=== PATIENT | female | born 1995 | race Asian ===

== ENCOUNTER → 2018-01-17 | Outpatient (CLI) | payer MEDICAID | LOC: BMCIMAGING 10:19 | PROVIDERS: ATTEND Urology | DX: Z03.89 Encounter for observation for other suspected diseases and conditions ruled out (principal) ==

== ENCOUNTER → 2018-04-11 | Outpatient (CLI) | payer MEDICAID | LOC: CIMAGING 09:43 | PROVIDERS: ATTEND Urology | DX: N13.2 Hydronephrosis with renal and ureteral calculous obstruction (principal); N13.4 Hydroureter | CPT/HCPCS: 74176-PO ==

== ENCOUNTER 2018-04-14 13:25 | Day surgery (SDC) | payer MEDICAID ==
[2018-04-14] MEDS ORDERED: ceFAZolin 3 GM in D5W 100 ML IV ONE (14:18)
[2018-04-14] MEDS ORDERED: OPIUM/BELLADONNA ALKALO SUPP PR PRN (14:18)
[2018-04-14] MEDS ORDERED: LR 1,000 ML IV ONE (14:18)
[2018-04-14] MEDS ORDERED: ceFAZolin 2 GM/DEXTROSE 100 ML IV ONE (14:30)
[2018-04-14] MEDS ORDERED: CEFAZOLIN 2 GM/DEXTROSE/100 ML BAG IV ONE (14:39)
[2018-04-14] MEDS ORDERED: OPIUM/BELLADONNA ALKALO SUPP PR ONE (16:09)
[2018-04-14] MEDS ORDERED: LIDOCAINE 2% JELLY 20 ML (UROJECT) ONE (16:09)
[2018-04-14] MEDS ORDERED: IOPAMIDOL (ISOVUE-M 300) 15 ML VIAL ONE (16:10)
--- NOTE | 2018-04-14 16:21 | PDANEPAE ---
ANE Past Medical History - Cardiovascular History Hx Hypertension: No Hx Arrhythmias: No Hx Chest Pain: No Hx Coronary Artery / Peripheral Vascular Disease: No Hx CHF / Valvular Disease: No Hx Palpitations: No - Pulmonary History Hx COPD: No Hx Asthma/Reactive Airway Disease: No Hx Recent Upper Respiratory Infection: No Hx Oxygen in Use at Home: No Hx Sleep Apnea: No Sleep Apnea Screening Result - Last Documented: Negative - Neurologic History Hx Cerebrovascular Accident: No Hx Seizures: No Hx Dementia: No - Endocrine History Hx Diabetes: No Endocrine History Comment: was treated for hypothyroid but PCP has taken her off of medication - Renal History Hx Renal Disorders: Yes Renal History Comment: kidney stones - Liver History Hx Hepatic Disorders: No - Neurological & Psychiatric Hx Hx Neurological and Psychiatric Disorders: Yes Neurological / Psychiatric History Comment: depression, no longer on medication - Cancer History Hx Cancer: No - Congenital Disorder History Hx Congenital Disorders: No - GI History Hx Gastrointestinal Disorders: No - Other Health History Other Health History: wears glasses - Chronic Pain History Chronic Pain: No - Surgical History Prior Surgeries: appendectomy ANE Review of Systems Review of Systems: - Exercise capacity METS (RN): 4 METS ANE Patient History - Allergies Allergies/Adverse Reactions: No Known Allergies Allergy (Verified 04/13/18 18:14) - Home Medications Home Medications: NK [No Known Home Meds] 04/13/18 [Last Taken Unknown] - NPO status NPO Since - Liquids (Date): 04/14/18 NPO Since - Liquids (Time): 11:00 NPO Since - Solids (Date): 04/13/18 NPO Since - Solids (Time): 19:00 - Smoking Hx Smoking Status: Never smoked - Family Anes Hx Family Hx Anesthesia Complications: none ANE Labs/Vital Signs - Vital Signs Blood Pressure: 110/68 Heart Rate: 69 Respiratory Rate: 16 O2 Sat (%): 98 Height: 165.1 cm Weight: 111.13 kg ANE Physical Exam - Airway Mallampati Score: Class 2 - ASA Status ASA Status: I ANE Anesthesia Plan Anesthesia Plan: GA w LMA
[2018-04-14] MEDS ORDERED: MIDAZOLAM 2 MG/2 ML VIAL ONE (17:20)
[2018-04-14] MEDS ORDERED: PROPOFOL 200 MG/20 ML VIAL ONE (17:22)
[2018-04-14] MEDS ORDERED: fentaNYL 100 MCG/2 ML INJ ONE ×2 (17:22→18:06)
[2018-04-14] MEDS ORDERED: ONDANSETRON 4 MG/2 ML VIAL ONE (17:25)
[2018-04-14] MEDS ORDERED: METOCLOPRAMIDE 10 MG/2 ML VIAL ONE (17:25)
--- NOTE | 2018-04-14 17:44 | PDHPUP ---
History & Physical Update H&P update statement: This history and physical update is based on an assessment of the patient which was completed after admission or registration (within 24 hours), but prior to the surgery/procedure. H&P update: H&P reviewed & patient examined, no change in patient's condition since H&P completed
[2018-04-14] MEDS ORDERED: KETOROLAC 30 MG/1 ML SDV ONE (18:59)
--- NOTE | 2018-04-14 19:05 | POSTOPPROG ---
Post Op Note Date of Operation: 04/14/18 Surgeon: Leeanna Bautista Anesthesiologist: Wilber Anesthesia: GET(General Endotracheal) Pre-op Diagnosis: left ureteral stone Post-op Diagnosis: same, left ureteral stricture Indication: left ureteral stone Procedure: cysto,LURS,balloon dilation ureter,laser lithotripsy,stent,RGP, fluoro Findings: very narrow left distal ureter, distal stone Inf/Abcess present in the surg proc area at time of surgery?: No EBL: Minimal Complications: none pt tolerated procedure well Specimen(s): stone
[2018-04-14] MEDS ORDERED: ONDANSETRON 4 MG/2 ML VIAL IVP PRN (19:08)
[2018-04-14] MEDS ORDERED: LR 500 ML IV PRN (19:08)
[2018-04-14] MEDS ORDERED: NALOXONE HCL 0.4 MG/ML INJ IVP PRN (19:08)
[2018-04-14] MEDS ORDERED: fentaNYL 100 MCG/2 ML INJ IVP PRN (19:08)
--- NOTE | 2018-04-14 19:09 | POSTANESTH ---
Post Anesthetic Evaluation Cardiovascular Status: Normal, Stable Respiratory Status: Normal, Stable Level of Consciousness/Mental Status: Can Participate in Eval Pain Control: Adequate, Prn Tx Ordered Nausea/Vomiting Control: Adequate, Prn Tx Ordered Complications Possibly Related to Anesthesia: None Noted
[2018-04-14 20:46] VITALS: BP 93/57
--- NOTE | 2018-04-15 16:28 | GOP ---
DATE OF OPERATION: SURGEON: Leeanna Bautista MD ANESTHESIA: General. ANESTHESIOLOGIST: Dr. Sj Merino MD. PREOPERATIVE DIAGNOSIS: Left ureteral stone. POSTOPERATIVE DIAGNOSIS: Left ureteral stone and left ureteral stricture. PROCEDURE PERFORMED: FINDINGS: A very narrow left distal ureter that required balloon dilation and a distal stone that was removed in its entirety. SPECIMENS: Stone fragments. ESTIMATED BLOOD LOSS: Minimal. INDICATIONS: Left ureteral stone. Patient presented to my office with a left ureteral stone that had not passed since November. She had an ultrasound and a KUB , and they showed no stone and so we assumed she had passed it, but then she came to my office a couple weeks ago complaining of left flank pain. I got a repeat CT scan that showed a 6 mm left distal ureteral stone with mild hydronephrosis that was still present, so we elected to do ureteroscopy to treat that stone. We discussed the rationale, risks, and benefits. The benefits include getting rid of the stone and preserving renal function. Risks include bleeding; infection; pain; injury to the urethra, bladder, ureter, surrounding tissues. Inability to gain access to the stone, we would just place a stent, and inability to place a stent, need for left percutaneous nephrostomy placement by Interventional Radiology. She understood these risks and agreed to proceed. DESCRIPTION OF PROCEDURE: The patient was taken back to the cystoscopy suite, placed on the cystoscopy table in the supine position. General anesthesia induced without complication. Time-out performed and core measures satisfied, including placement of a Tanesha Hugger, SCDs, and administration of 2 g Ancef antibiotic. She was brought to the end of the table, placed in dorsal lithotomy position with all pressure points padded. Genitalia draped and prepped in standard surgical fashion with Betadine. A rigid cystoscope easily cannulated her urethral meatus and was advanced atraumatically into the bladder. Reyes cystoscopy was performed, and there was no stone in the bladder. No abnormalities or lesions. The left ureteral orifice was very narrow appearing, and with this and knowing that she had not passed her stone for several months, I decided to balloon dilate this to make our removal of the stone easier, so first of all, I did a retrograde pyelogram with a 5-Bahamian open -ended catheter and saw the filling defect of the stone. I then passed a 5 cm 18-Bahamian balloon dilator sheath to just right up to the level of the stone that I could see on fluoroscopy and then balloon dilated the distal ureteral orifice. Once this was done, I had actually advanced two Glidewires in the left collecting system prior to balloon dilation, so I did dilate over a wire, so the two wires were still up. I removed the balloon dilator. I left both wires in place and then removed the cystoscope and then placed a 12-Bahamian Chan catheter for decompression of the bladder and then I advanced a rigid ureteroscope into the urethra and then into the bladder and into the left collecting system. I encountered the stone right away. It was too big to basket in its entirety, so I did laser it into fragments. I advanced laser fiber up to the level of stone, lasered it into several fragments with the laser , and then advanced a basket to the stone fragments and was able to basket all the stone fragments out so all the stone had been removed. I then advanced the ureteroscope up as far as I could, which was very close to the renal pelvis, and there were no other stone fragments, just a very dilated ureter above where the stone had been found. At this point I had both wires still up. I removed the ureteroscope, examined the wall of the ureter. It was inflamed around where that stone had been sitting, but otherwise the remaining ureter was just dilated. At this point I removed the ureteroscope and removed the Chan then placed a 6-Bahamian multivariable stent with fluoroscopic guidance over a wire. There was a nice curl in the renal pelvis and a nice curl in the bladder. Her bladder was emptied. Stone fragments were further removed from the bladder and sent to Pathology with the cystoscope and then the bladder was emptied. Lidocaine jelly placed into the bladder, and then belladonna opium suppository placed per rectum. At this point the procedure was considered complete. She was awoken from anesthesia and transferred to PACU in good condition. COMPLICATIONS: None. /[id number]/MODL MTDD
== END 2018-04-14 21:46 | disposition home or self-care (01) ==
LOC: FSGY 13:25
PROVIDERS: ATTEND Urology
PROC: BT171ZZ Fluoroscopy of Left Ureter using Low Osmolar Contrast (ICD-10-PCS; principal; 2018-04-14 14:30)
PROC: 0TF78ZZ Fragmentation in Left Ureter, Via Natural or Artificial Opening Endoscopic (ICD-10-PCS; principal; 2018-04-14 14:30)
PROC: 0T9780Z Drainage of Left Ureter with Drainage Device, Via Natural or Artificial Opening Endoscopic (ICD-10-PCS; principal; 2018-04-14 14:30)
PROC: 0T778ZZ Dilation of Left Ureter, Via Natural or Artificial Opening Endoscopic (ICD-10-PCS; principal; 2018-04-14 14:30)
DX: N20.1 Calculus of ureter (principal); N13.5 Crossing vessel and stricture of ureter without hydronephrosis
CPT/HCPCS: 52344; 52356; 76001; C1758; C1769; 82365-90; C2625; J0690; J1885; J2250; J2405; J2704; J2765; J3010; Q9967